=== PATIENT | female | born 1940 | race Caucasian/White ===

== ENCOUNTER 2019-07-03 14:14 | Inpatient (IN) ==
[2019-07-03] MEDS ORDERED: Isovue-370 500 ML BOTTLE IVP ONE ×2 (14:44→14:50)
[2019-07-03 15:37] LABS: Basophils % 0.3 %; Hemoglobin 11.2 g/dL (11.5-15.4); Red Cell Distribution Width 15.1 % (11.5-14.5)
[2019-07-03 15:38] LABS: Eosinophils % 0.1 %; Hematocrit 40.3 % (35.3-44.9); Immature Granulocytes % 1.3 % (0-4); Lymphocytes # 0.2 K/mcL (0.6-4.6); Lymphocytes % 2.4 %; Mean Corpuscular HGB Conc 27.8 g/dL (31.6-35.5); Mean Corpuscular Hemoglobin 29.2 pg (28.0-33.3); Mean Corpuscular Volume 105.2 fL (83.0-100.0); Mean Platelet Volume 9.2 fL (9.4-12.4); Monocytes # 0.4 K/mcL (0.0-1.3); Neutrophils # 6.9 K/mcL (1.6-8.9); Platelet Count 367 K/mcL (140-400); Red Blood Count 3.83 M/mcL (3.82-4.97); Segmented Neutrophils % 90.9 %; White Blood Count 7.6 K/mcL (4.3-11.1)
[2019-07-03 15:48] LABS: INR 0.9; Prothrombin Time 10.6 Seconds (9.4-12.1)
[2019-07-03 15:50] LABS: Activated Partial Thrombo Time 28.3 Seconds (26.0-36.0)
[2019-07-03 16:24] LABS: Alanine Aminotransferase 23 Units/L (7-52); Albumin 3.4 g/dL (3.5-5.7); Albumin/Globulin Ratio 1.1 (1.1-2.2); Alkaline Phosphatase 130 Units/L (34-104); Aspartate Amino Transferase 23 Units/L (13-39); BUN/Creatinine Ratio 47 (6-26); Bilirubin,Direct 0.1 mg/dL (0.0-0.2); Bilirubin,Indirect 0.2 mg/dL (0.0-1.0); Bilirubin,Total 0.3 mg/dL (0.3-1.0); Blood Urea Nitrogen 28 mg/dL (8-23); Calcium 9.7 mg/dL (8.6-10.3); Carbon Dioxide > 45 mEq/L (23-29); Chloride 91 mEq/L (98-107); Glucose 141 mg/dL (70-105); Lipase 36 Units/L (11-82); Osmolality,Calculated 298 (280-300); Potassium 4.6 mEq/L (3.5-5.1); Sodium 140 mEq/L (136-145); Total Protein 6.4 g/dL (6.4-8.9); Troponin I < 0.03 ng/mL (< 0.04); eGFR For African Americans > 60 (> 60); eGFR For Non-African Americans > 60 (> 60)
[2019-07-03] MEDS ORDERED: Furosemide 40 MG/4 ML VIAL IVP ONE (17:28)
[2019-07-03 18:31] LABS: ABG Base Excess 20 mEq/L (-2 to 3); ABG HCO3 51 mEq/L (21-27); ABG Oxygen Saturation 97 % (95-98); ABG PCO2 104 mmHg (35-45); ABG PO2 112 mmHg (85-104); ABG TCO2 > 50 mEq/L (20-26)
[2019-07-03 18:41] LABS: Adenovirus Not Detected (Not Detect); Bordetella Pertussis Not Detected (Not Detect); Chlamydophila pneumoniae Not Detected (Not Detect); Coronavirus 229E Not Detected (Not Detect); Coronavirus HKU1 Not Detected (Not Detect); Coronavirus NL63 Not Detected (Not Detect); Coronavirus OC43 Not Detected (Not Detect); Human Metapneumovirus Not Detected (Not Detect); Human Rhinovirus/Enterovirus Not Detected (Not Detect); Influenza A Subtype 2009 H1 Not Detected (Not Detect); Influenza B Not Detected (Not Detect); Mycoplasma pneumoniae Not Detected (Not Detect); Parainfluenza Virus 1 Not Detected (Not Detect); Parainfluenza Virus 2 Not Detected (Not Detect); Parainfluenza Virus 3 Not Detected (Not Detect); Parainfluenza Virus 4 Not Detected (Not Detect); Respiratory Syncytial Virus Not Detected (Not Detect)
[2019-07-03] MEDS ORDERED: Ondansetron ODT 4 MG TAB.RAPDIS SL PRN (19:55)
[2019-07-03] MEDS ORDERED: Naloxone 0.4 MG/ML INJ IVP PRN (19:55)
[2019-07-03] MEDS ORDERED: Ipratropium/Albuterol Neb 3 ML IH PRN (19:59)
[2019-07-03] MEDS ORDERED: 0.9 % Sodium Chloride 1,000 ML IVC SCH (20:00)
[2019-07-03] MEDS: *HR* Heparin 5,000 UNIT/ML VIAL SQ SCH (21:41)
[2019-07-03] MEDS: 0.9 % Sodium Chloride 1,000 ML IVC SCH (21:41)
[2019-07-03] MEDS ORDERED: *HR* LORazepam 2 MG/ML VIAL IVP ONE (23:14)
[2019-07-04] MEDS ORDERED: Haloperidol Lactate 5 MG/ML VIAL IVP ONE (00:42)
[2019-07-04 06:07] LABS: Alanine Aminotransferase 18 Units/L (7-52); Albumin/Globulin Ratio 1.4 (1.1-2.2); Alkaline Phosphatase 107 Units/L (34-104); Aspartate Amino Transferase 16 Units/L (13-39); BUN/Creatinine Ratio 67 (6-26); Bilirubin,Total 0.2 mg/dL (0.3-1.0); Blood Urea Nitrogen 24 mg/dL (8-23); Calcium 8.9 mg/dL (8.6-10.3); Carbon Dioxide > 45 mEq/L (23-29); Chloride 94 mEq/L (98-107); Globulin 2.2 g/dL (2.4-3.5); Glucose 87 mg/dL (70-105); Osmolality,Calculated 299 (280-300); Potassium 4.1 mEq/L (3.5-5.1); Sodium 143 mEq/L (136-145); Total Protein 5.2 g/dL (6.4-8.9); eGFR For African Americans > 60 (> 60); eGFR For Non-African Americans > 60 (> 60)
[2019-07-04] MEDS ORDERED: Haloperidol Lactate 5 MG/ML VIAL IVP PRN (06:11)
[2019-07-04] MEDS: *HR* Heparin 5,000 UNIT/ML VIAL SQ SCH ×2 (06:38→13:37)
[2019-07-04] MEDS ORDERED: Furosemide 40 MG/4 ML VIAL IVP SCH (09:00)
[2019-07-04] MEDS ORDERED: amLODIPine 5 MG TABLET PO SCH (09:00)
[2019-07-04] MEDS: 0.9 % Sodium Chloride 1,000 ML IVC SCH (09:45)
[2019-07-04 10:02] LABS: VBG HCO3 47 mEq/L (21-27); VBG PCO2 72 mmHg (41-51); VBG PH 7.42 pH Units (7.32-7.42); VBG PO2 186 mmHg (25-50)
[2019-07-04] MEDS ORDERED: cefTRIAXone 2,000 MG in Water for inj. (sterile) 20 ML IVP SCH ×2 (12:00→12:30)
[2019-07-04] MEDS ORDERED: Doxycycline 100 MG in 0.9 % Sodium Chloride Mini Bag 100 ML IVPB SCH (13:00)
[2019-07-04 13:32] LABS: Bilirubin,Urine Negative (Negative); Blood,Urine Large (Negative); Clarity,Urine Turbid (Clear); Color,Urine Yellow (Yellow); Glucose,Urine (UA) Normal (Normal); Ketones,Urine 15 mg/dL (Negative); Leukocyte Esterase,Urine Large (Negative); Nitrite,Urine Positive (Negative); Protein,Urine 30 mg/dL (Neg-Trace); Specific Gravity,Urine 1.015 (1.010-1.025); Urobilinogen,Urine Normal (Normal)
[2019-07-04 13:36] LABS: Bacteria,Urine Many per hpf (None-Few); Hyaline Casts,Urine Few per lpf (None-Few); RBC,Urine TNTC per hpf (0-3); Squamous Epithelial Cell,Urine Many per lpf (None-Few); WBC,Urine TNTC per hpf (0-3)
[2019-07-04] MEDS: Ipratropium/Albuterol Neb 3 ML IH SCH ×3 (16:30→19:41)
[2019-07-04 21:35] VITALS: BP 120/60
== END 2019-07-04 23:20 | disposition expired | DRG 100 ==
LOC: 2NENU 14:14 → EMEROOARM 14:14 → SUATTDRO 18:17 → 2NENU 19:01
PROVIDERS: ADMIT Internal Medicine; ATTEND Internal Medicine